=== PATIENT | female | born 1965 | race Caucasian/White ===

== ENCOUNTER → 2018-06-25 15:00 | Outpatient (CLI) | payer OTHER, SELFPAY | DX: Z23 Encounter for immunization (principal) | CPT/HCPCS: 90471; 90686 ==

== ENCOUNTER → 2018-08-19 14:51 | Outpatient (CLI) | payer OTHER, SELFPAY ==
--- NOTE | 2018-08-19 | DI.MG.S_ITS ---
BILATERAL DIGITAL SCREENING MAMMOGRAM 3D/2D WITH CAD: 08/19/2018 CLINICAL: Routine screening. Comparison is made to exams dated: 07/30/2017 mammogram - [facility], 04/13/2014 mammogram, and 03/07/2014 mammogram - [facility]. The tissue of both breasts is extremely dense, which lowers the sensitivity of mammography. Current study was also evaluated with a Computer Aided Detection (CAD) system. There is a benign biopsy clip in both breasts. No significant masses, calcifications, or other findings are seen in either breast. There has been no significant interval change. IMPRESSION: NEGATIVE There is no mammographic evidence of malignancy. A 1 year screening mammogram is recommended. This exam was interpreted at Station ID: [id number]. NOTE: For mammograms, a report in lay terms will be sent to the patient. Approximately 15% of breast malignancies will not be visualized mammographically. In the management of a palpable breast mass, a negative mammogram must not discourage biopsy of a clinically suspicious lesion. Electronically Signed By: Nereyda florentino/christiano:08/19/2018 16:04:47 letter sent: Normal Exam ACR BI-RADS Category 1: Negative 3341F
== END ==
PROVIDERS: Visit Provider Physician Assistant
DX: Z12.31 Encounter for screening mammogram for malignant neoplasm of breast (principal)
CPT/HCPCS: 77063; 77067

== ENCOUNTER 2018-10-24 12:56 | Emergency (ER) | payer OTHER, SELFPAY ==
[2018-10-24] VITALS (15 sets, daily range): BP systolic 118–150; BP diastolic 74–92; PULSE 64–113; RESP 12–22; TEMP 36.6; O2SAT 98–100
--- NOTE | 2018-10-24 13:19 | DI.RAD.S_ITS ---
PROCEDURE: XR WRIST RT MIN 3V INDICATIONS: fall/ injury/pain/deformed TECHNIQUE: 4 views of the wrist were acquired. COMPARISON: None. FINDINGS: Bones: There is a comminuted, mildly impacted fracture of the distal right radius with foreshortening and dorsal angulation of the distal fracture fragment. There is approximately 1.1 cm of override. Remainder of the visualized osseous structures appear intact. Scaphoid view: Not requested Soft tissues: No suspicious soft tissue calcifications. IMPRESSION: Comminuted, mildly impacted distal right radial fracture. Dictated by: Virgilio Zelaya M.D. on 10/24/2018 at 13:38 Approved by: Virgilio Zelaya M.D. on 10/24/2018 at 13:41
--- NOTE | 2018-10-24 13:25 | ED_ITS ---
HPI - Extremity Injury (Upper) General Chief Complaint: Extremity Injury, Upper Stated Complaint: RT WRIST BROKEN Time Seen by Provider: 10/24/18 13:05 Source: patient Mode of arrival: ambulatory Limitations: no limitations History of Present Illness HPI narrative: Otherwise healthy 53-year-old female not on anticoagulation here for evaluation of right upper extremity injury. Patient was hiking when she slipped and fell on an outstretched hand. Has an obvious deformity to her right wrist. She has no other injuries from the event. She did walk out of the trail. No interventions prior to arrival. Related Data Previous Rx's Medication Instructions Recorded hydrocodone-acetaminophen [[place]] 1 tab PO Q4-6H PRN #25 tab 10/24/18 ondansetron 4 mg PO Q6-8H PRN #10 tab 10/24/18 Allergies Allergy/AdvReac Type Severity Reaction Status Date / Time No Known Drug Allergies Allergy Verified 10/24/18 15:25 Review of Systems Constitutional Denies frequent falls and Denies headache(s) ENT Ears, Nose, Mouth, and Throat: Denies vertigo, Denies dizziness and Denies headache(s) Cardiovascular Denies chest pain and Denies dyspnea Respiratory Denies dyspnea Gastrointestinal Gastrointestinal: Denies abdominal pain, Denies nausea and Denies vomiting Genitourinary Denies dysuria Musculoskeletal Comments: Right wrist pain with deformity Integumentary/Breasts Denies lesions and Denies rash Neurologic Denies vertigo, Denies dizziness, Denies frequent falls and Denies headache(s) Hematologic/Lymphatic Comments: Not on anticoagulation PFSH Medical History Healthy adult (Acute) Surgical History No pertinent past surgical history (Acute) Social History lives independently: Yes Exam Initial Vital Signs Initial Vital Signs: Vital Signs Temperature 97.8 F 10/24/18 13:22 Pulse Rate 77 10/24/18 13:22 Respiratory Rate 12 10/24/18 13:22 Blood Pressure 143/90 H 10/24/18 13:22 Pulse Oximetry 98 10/24/18 13:22 Const General: cooperative, healthy appearing, comfortable, well developed, well groomed and No acute distress Orientation: alert, awake and oriented x3 HENMT Head: normal to inspection and normocephalic Resp Effort & Inspection: normal respiratory effort Auscultation: clear to auscultation bilaterally Cardio Palpation: normal PMI Rate: regular rate Heart Sounds: no murmurs Pulses: radial pulses present on the right GI Inspection: non-distended Palpation: soft Skin Lesions: no lesions Rashes: no rashes Neuro General: alert, awake and oriented x3 Other: Sensation intact to light touch right upper extremity Extrem Other: Right shoulder unremarkable. Right elbow unremarkable. Obvious deformity of the right wrist. Right hand right fingers unremarkable. Psych Appearance: grossly normal and well kempt Procedures Orthopedic Fracture Reduction Fracture #1: Time Out Performed: Yes Side: right Fracture Reduction Location: radius Analgesia: procedural sedation Technique: direct manipulation Post Reduction X-rays Demonstrate: acceptable reduction Post-reduction neuro exam: no change Post-reduction vascular exam: no change Splint Applied: Yes Patient Tolerated Procedure: Well and No complications Orthopedic Splinting/Casting Injury #1: Side: right Upper Extremity Injury Location: wrist Upper Extremity Immobilizer: sugar tong splint Procedural Sedation Patient Age: Patient is 5yrs or older Indication: fracture/dislocation reduction ASA Class: I Mallampati Airway Classification: Class I Preparation: gambling monitor applied, pulse oximeter, capnometry used and supplemental O2 applied Ketamine: IV Ketamine dose (mg): 100 ED Sedation Level: Moderate (Concious) Patient Tolerated Procedure: Well and No complications Complications: none Course Orders Ordered: ED Orders 10/24/18 13:19 XR wrist RT min 3V Stat 10/24/18 13:51 XR wrist RT 2V Stat Discontinued Medications Sodium Chloride (Normal Saline 0.9%) 1,000 mls @ 1,000 mls/hr IV BOLUS ONE Stop: 10/24/18 14:50 Last Admin: 10/24/18 15:27 Dose: Ketamine HCl (Ketalar) 100 mg IV NOW ONE Stop: 10/24/18 13:54 Last Admin: 10/24/18 14:26 Dose: 100 mg Morphine Sulfate (Morphine) 4 mg IV NOW ONE Stop: 10/24/18 13:52 Last Admin: 10/24/18 15:27 Dose: Vital Signs - 8 hr 10/24/18 13:22 10/24/18 14:00 10/24/18 14:07 Temperature 97.8 F Pulse Rate 77 67 64 Respiratory Rate 12 15 16 Blood Pressure 143/90 H Blood Pressure [Left Arm] 120/79 120/79 Pulse Oximetry 98 99 100 10/24/18 14:15 10/24/18 14:29 10/24/18 14:41 Temperature Pulse Rate 74 113 H 91 H Respiratory Rate 13 22 18 Blood Pressure Blood Pressure [Left Arm] 131/74 150/92 H 142/74 H Pulse Oximetry 100 100 100 10/24/18 14:45 10/24/18 14:51 10/24/18 14:52 Temperature Pulse Rate 82 65 75 Respiratory Rate 17 16 15 Blood Pressure Blood Pressure [Left Arm] 137/77 130/76 Pulse Oximetry 98 98 10/24/18 14:56 10/24/18 15:01 10/24/18 15:18 Temperature Pulse Rate 72 72 68 Respiratory Rate 16 16 13 Blood Pressure Blood Pressure [Left Arm] 130/79 130/81 120/79 Pulse Oximetry 98 99 99 10/24/18 15:30 10/24/18 15:45 10/24/18 16:00 Temperature Pulse Rate 64 66 66 Respiratory Rate 15 13 13 Blood Pressure Blood Pressure [Left Arm] 118/80 139/84 120/77 Pulse Oximetry 100 100 100 MDM - Extremity Injury (Upper) Lab Data Point of Care Testing Test Results Negative Imaging Data X-ray wrist: Radiologist's impression: PROCEDURE: XR WRIST RT MIN 3V INDICATIONS: fall/ injury/pain/deformed TECHNIQUE: 4 views of the wrist were acquired. COMPARISON: None. FINDINGS: Bones: There is a comminuted, mildly impacted fracture of the distal right radius with foreshortening and dorsal angulation of the distal fracture fragment. There is approximately 1.1 cm of override. Remainder of the visualized osseous structures appear intact. Scaphoid view: Not requested Soft tissues: No suspicious soft tissue calcifications. IMPRESSION: Comminuted, mildly impacted distal right radial fracture. Dictated by: Virgilio Zelaya M.D. on 10/24/2018 at 13:38 Approved by: Virgilio Zelaya M.D. on 10/24/2018 at 13:41 Post reduction x-ray wrist: Radiologist's impression: [address] [address] XRay Report Signed Patient: Tiffanie Shah JMR#: [id number] : 1965Acct:[id number] Age/Sex: 53 / FDate of Service: 10/24/18 Loc: ED Accession Number: [id number] Procedure: XR wrist RT 2V Ordering Provider: Julio Barrera D.O. PROCEDURE: XR WRIST RT 2V INDICATIONS: post reduction TECHNIQUE: 3 views of the wrist were acquired. COMPARISON: Earlier same date. FINDINGS: Bones: Status post interval closed reduction of a known comminuted distal right radial fracture. Post reduction alignment is improved with mild residual overlapping of the distal fracture fragments and minimal dorsal angulation. Overlying cast/splint material obscures fine underlying osseous details. No suspicious bony lesions. Scaphoid view: Not requested Soft tissues: No suspicious soft tissue calcifications. IMPRESSION: Status post interval closed reduction of comminuted right distal radial fracture in improved alignment. Dictated by: Virgilio Zelaya M.D. on 10/24/2018 at 15:46 Approved by: Virgilio Zelaya M.D. on 10/24/2018 at 15:47 [facility] Narrative Medical decision making narrative: Patient with mechanical fall and right distal radius fracture. Patient was sedated with ketamine in reduced fracture to acceptable reduction with splint placement. Patient tolerated well. Was neurovascularly intact. Was placed in a splint. Was given a sling. Will send home with pain medication and nausea medication. Was given care instructions. He is given return precautions. No other injuries from the event. Was given follow-up with Orthopedics. Patient expressed understanding and agreement with plan. Discharge Plan Departure Patient Disposition: Home Clinical Impression: Distal radius fracture, right Discharge Date/Time: 10/24/18 16:40 Interventions: ED Discharge Assessment Last Done: 10/24/18 16:40 Instructions: How to Take Care of Your Splint, DI for Distal Radius Fracture Activity Restrictions/Additional Instructions: The splint needs to stay on a needs to stay clean and stay dry. Take the pain medication the nausea medication as needed. On Friday contact the [facility] group at [phone]. I would also recommend you contact your primary care doctor. Return to the emergency department for any new or worsening symptoms Prescriptions: New ondansetron 4 mg tablet,disintegrating 4 mg PO Q6-8H PRN (Reason: nausea and vomiting) Qty: 10 RF: 0 hydrocodone-acetaminophen [[place]] 5-325 mg tablet 1 tab PO Q4-6H PRN (Reason: pain) Qty: 25 RF: 0
--- NOTE | 2018-10-24 13:51 | DI.RAD.S_ITS ---
PROCEDURE: XR WRIST RT 2V INDICATIONS: post reduction TECHNIQUE: 3 views of the wrist were acquired. COMPARISON: Earlier same date. FINDINGS: Bones: Status post interval closed reduction of a known comminuted distal right radial fracture. Post reduction alignment is improved with mild residual overlapping of the distal fracture fragments and minimal dorsal angulation. Overlying cast/splint material obscures fine underlying osseous details. No suspicious bony lesions. Scaphoid view: Not requested Soft tissues: No suspicious soft tissue calcifications. IMPRESSION: Status post interval closed reduction of comminuted right distal radial fracture in improved alignment. Dictated by: Virgilio Zelaya M.D. on 10/24/2018 at 15:46 Approved by: Virgilio Zelaya M.D. on 10/24/2018 at 15:47
[2018-10-24] MEDS: KETAMINE 500 MG/10 ML INJ 100 MG IV (14:26)
--- NOTE | 2018-10-24 14:27 | PC.NURSE ---
close reduction started, minimal chest rise, assist with bvm by rt.
--- NOTE | 2018-10-24 14:33 | PC.NURSE ---
pt with shallow respiration, continue with minimal assist ventilation. splint applied by dr quevedo, distal cms intact. post reduction xray
--- NOTE | 2018-10-24 14:47 | PC.NURSE ---
[id number] pt gave verbal consent for procedure, pt right handed, told mother to signed the consent.
--- NOTE | 2018-10-24 14:56 | PC.NURSE ---
family at bs.
== END 2018-10-24 16:40 | disposition home or self-care (01) ==
PROVIDERS: Emergency Provider Emergency Medicine; PCP Physician Assistant
DX: S52.501A Unspecified fracture of the lower end of right radius, initial encounter for closed fracture (principal); W01.0XXA Fall on same level from slipping, tripping and stumbling without subsequent striking against object, initial encounter; Y93.01 Activity, walking, marching and hiking
CPT/HCPCS: 25605; 73100; 73110; 94770; 99152; 99284; 99285; 99291

== ENCOUNTER → 2019-06-24 12:52 | Outpatient (CLI) | payer OTHER, SELFPAY | PROVIDERS: PCP Physician Assistant | DX: Z23 Encounter for immunization (principal) | CPT/HCPCS: 90471; 90686 ==

== ENCOUNTER → 2019-09-06 14:17 | Outpatient (CLI) | payer OTHER, SELFPAY ==
--- NOTE | 2019-09-06 | DI.MG.S_ITS ---
BILATERAL DIGITAL SCREENING MAMMOGRAM 3D/2D WITH CAD: 09/06/2019 CLINICAL: Routine screening. Comparison is made to exams dated: 08/19/2018 mammogram, 07/30/2017 mammogram - [facility], and 04/13/2014 mammogram - [facility]. The tissue of both breasts is extremely dense, which lowers the sensitivity of mammography. Current study was also evaluated with a Computer Aided Detection (CAD) system. There are benign calcifications in the right breast. There also is a biopsy clip in both breasts. No significant masses, calcifications, or other findings are seen in either breast. There has been no significant interval change. IMPRESSION: There is no mammographic evidence of malignancy. A 1 year screening mammogram is recommended. This exam was interpreted at Station ID: [id number]. NOTE: For mammograms, a report in lay terms will be sent to the patient. Approximately 15% of breast malignancies will not be visualized mammographically. In the management of a palpable breast mass, a negative mammogram must not discourage biopsy of a clinically suspicious lesion. Electronically Signed By: Virgilio sargent/christiano:09/06/2019 19:41:13 letter sent: Normal Exam ACR BI-RADS Category 2: Benign Finding(s) 3342F
== END ==
PROVIDERS: PCP Physician Assistant; Visit Provider Physician Assistant
DX: Z12.31 Encounter for screening mammogram for malignant neoplasm of breast (principal)
CPT/HCPCS: 77063; 77067

== ENCOUNTER → 2019-09-28 15:09 | Outpatient (ROUT) | payer OTHER, SELFPAY | PROVIDERS: PCP Physician Assistant; Visit Provider Physician Assistant | DX: M12.10 Kaschin-Beck disease, unspecified site (principal) | CPT/HCPCS: 87077; 87086; 87186 ==

== ENCOUNTER 2019-10-12 07:31 | Emergency (ER) | payer OTHER, SELFPAY ==
[2019-10-12 07:31] VITALS: BP 108/77; PULSE 81; RESP 16; TEMP 36.1; O2SAT 98; BMI 18.8
--- NOTE | 2019-10-12 07:35 | DI.RAD.S_ITS ---
PROCEDURE: XR WRIST RT MIN 3V INDICATIONS: fell, now with right wrist pain TECHNIQUE: 4 views of the wrist were acquired. COMPARISON: [facility] CHAPINCITO Krueger, XR WRIST 3+ VIEWS RIGHT, 01/18/2019, 13:15. FINDINGS: Bones: There is an apparent new transverse fracture involving the distal right radial metaphysis with associated mild impaction that extends into the distal radial ulnar joint with widening of the distal radial ulnar joint. An old ulnar styloid process injury is evident. Moderate degenerative changes are noted involving the basal joint of the thumb. Soft tissues: No suspicious soft tissue calcifications. Soft tissue swelling about the wrist is present. IMPRESSION: Mildly impacted distal radial metaphyseal fracture. Dictated by: Brandon Cleveland M.D. on 10/12/2019 at 7:10 Approved by: Brandon Cleveland M.D. on 10/12/2019 at 7:12
--- NOTE | 2019-10-12 08:07 | ED.UPPEXIN ---
HPI - Extremity Injury (Upper) General Chief Complaint: Extremity Injury, Upper Stated Complaint: slipped this morning,injury right wrist Time Seen by Provider: 10/12/19 08:00 Source: patient Mode of arrival: Ambulatory Limitations: no limitations History of Present Illness HPI narrative: Patient is a 54-year-old female who presents with right wrist pain after trip and fall on the ice. She denies any numbness or tingling no other injuries. MD complaint: injury to: right and wrist Onset (ago): minute(s) Related Data Previous Rx's Medication Instructions Recorded hydrocodone-acetaminophen [[place]] 1 tab PO Q4-6H PRN #25 tab 10/24/18 ondansetron 4 mg PO Q6-8H PRN #10 tab 10/24/18 Allergies Allergy/AdvReac Type Severity Reaction Status Date / Time No Known Drug Allergies Allergy Verified 10/12/19 07:42 Review of Systems Review of Systems Narrative: GENERAL: Denies chills,fever HEENT: Denies throat pain RESPIRATORY: Denies dyspnea, cough, wheezing CARDIOVASCULAR: Denies chest pain, palpitations GASTROINTESTINAL: Denies nausea, vomiting MUSCULOSKELETAL: See HPI SKIN: No rash, no laceration, no pruritus NEUROLOGIC: Denies weakness, dizziness, headache, numbness 8 point review of systems is negative except for those stated above and HPI Patient History Medical History Healthy adult (Acute) Surgical History No pertinent past surgical history (Acute) Social History lives independently: Yes Smoking Status: Never smoker Smoking Status: Never smoker Substance Use Type: does not use Exam Initial Vital Signs Initial Vital Signs: Vital Signs Temperature 96.9 F L 10/12/19 07:31 Pulse Rate 81 10/12/19 07:31 Respiratory Rate 16 10/12/19 07:31 Blood Pressure 108/77 10/12/19 07:31 Pulse Oximetry 98 10/12/19 07:31 GENERAL: Well-appearing, well-nourished and in no acute distress. CARDIOVASCULAR: peripheral pulses in tact, cap refill <2 sec RESPIRATORY: No respiratory distress, speaks in full sentences without difficulty EXTREMITIES: Normal range of motion, no clubbing or edema. Neurovascularly intact Right wrist good distal radial pulse obvious deformity moving all fingers minimal swelling NEUROLOGICAL: Cranial nerves II through XII grossly intact. Normal gait and speech. SKIN: Warm, dry, no petechiae, no rashes or lesions. Procedures Orthopedic Splinting/Casting Injury #1: Side: left Upper Extremity Injury Location: wrist Upper Extremity Immobilizer: sugar tong splint Post splinting neuro exam: intact Post splinting vascular exam: intact Placed by: Nursing Course Orders Ordered: ED Orders 10/12/19 07:35 XR wrist RT min 3V Stat Vital Signs Vital signs: Vital Signs - 8 hr 10/12/19 07:31 Temperature 96.9 F L Pulse Rate 81 Respiratory Rate 16 Blood Pressure 108/77 Pulse Oximetry 98 MDM - Extremity Injury (Upper) Imaging Data Extremity x-ray #1: Radiologist's Impression: PROCEDURE: XR WRIST RT MIN 3V INDICATIONS: fell, now with right wrist pain TECHNIQUE: 4 views of the wrist were acquired. COMPARISON: [facility] CHAPINCITO Morales, XR WRIST 3+ VIEWS RIGHT, 01/18/2019, 13:15. FINDINGS: Bones: There is an apparent new transverse fracture involving the distal right radial metaphysis with associated mild impaction that extends into the distal radial ulnar joint with widening of the distal radial ulnar joint. An old ulnar styloid process injury is evident. Moderate degenerative changes are noted involving the basal joint of the thumb. Soft tissues: No suspicious soft tissue calcifications. Soft tissue swelling about the wrist is present. IMPRESSION: Mildly impacted distal radial metaphyseal fracture. Dictated by: Brandon Cleveland M.D. on 10/12/2019 at 7:10 MDM Narrative Medical decision making narrative: This is patient's 2nd fracture no same place, she has a sling at home. Recommended following up with orthopedics. Discharge Plan Departure Patient Disposition: Home Clinical Impression: Fracture of wrist Qualifiers: Encounter type: initial encounter Fracture type: closed Laterality: right Qualified Code(s): S62.101A - Fracture of unspecified carpal bone, right wrist, initial encounter for closed fracture Discharge Date/Time: 10/12/19 09:03 Instructions: DI for Distal Radius Fracture Activity Restrictions/Additional Instructions: *You have been diagnosed with right wrist fracture *What to do: Keep arm in splint at all times. Use sling as needed Need follow-up with orthopedic *Continue to take medications as directed Tylenol 650 mg every 4-6 hours if needed for pain Or 1000 mg every 6 hours to not exceed more than 4000 mg in 24 hours *Follow up with your primary care provider in 2-3 days Call orthopedics today to follow-up the next 1-2 weeks *Return to ER if you should have increasing pain numbness tingling inability to move fingers or any new, worsening or concerning symptoms Prescriptions: No Action ondansetron 4 mg tablet,disintegrating 4 mg PO Q6-8H PRN (Reason: nausea and vomiting) Qty: 10 RF: 0 hydrocodone-acetaminophen [[place]] 5-325 mg tablet 1 tab PO Q4-6H PRN (Reason: pain) Qty: 25 RF: 0 Referrals: [facility] [Provider Group] Sophie Bro PA-C [Primary Care Provider] -
== END 2019-10-12 09:03 | disposition home or self-care (01) ==
PROVIDERS: Emergency Provider Emergency Medicine; PCP Physician Assistant
DX: S62.101A Fracture of unspecified carpal bone, right wrist, initial encounter for closed fracture (principal); W00.0XXA Fall on same level due to ice and snow, initial encounter
CPT/HCPCS: 29125; 73110; 99281; 99283

== ENCOUNTER → 2020-09-14 16:27 | Outpatient (CLI) | payer OTHER, SELFPAY ==
--- NOTE | 2020-09-14 16:28 | DI.MG.S_ITS ---
BILATERAL DIGITAL SCREENING MAMMOGRAM 3D/2D WITH CAD: 09/14/2020 CLINICAL: Routine screening. Comparison is made to exams dated: 09/06/2019 mammogram, 08/19/2018 mammogram, and 07/30/2017 mammogram - [facility]. The tissue of both breasts is extremely dense, which lowers the sensitivity of mammography. Current study was also evaluated with a Computer Aided Detection (CAD) system. There are benign calcifications in the right breast. There also is a biopsy clip in both breasts. No significant masses, calcifications, or other findings are seen in either breast. There has been no significant interval change. IMPRESSION: BENIGN There is no mammographic evidence of malignancy. A 1 year screening mammogram is recommended. This exam was interpreted at Station ID: [id number]. NOTE: For mammograms, a report in lay terms will be sent to the patient. Approximately 15% of breast malignancies will not be visualized mammographically. In the management of a palpable breast mass, a negative mammogram must not discourage biopsy of a clinically suspicious lesion. Electronically Signed By: Nereyda florentino/christiano:09/14/2020 16:55:10 letter sent: Normal Exam ACR BI-RADS Category 2: Benign Finding(s) 3342F
== END ==
PROVIDERS: PCP Physician Assistant; Referring Provider Physician Assistant; Visit Provider Physician Assistant
DX: Z12.31 Encounter for screening mammogram for malignant neoplasm of breast (principal)
CPT/HCPCS: 77063; 77067

== ENCOUNTER → 2021-04-30 14:56 | Outpatient (CLI) | payer OTHER, SELFPAY | PROVIDERS: PCP Physician Assistant; Referring Provider Pediatrics; Visit Provider Physician Assistant | DX: M85.832 Other specified disorders of bone density and structure, left forearm (principal); Z78.0 Asymptomatic menopausal state; Z87.81 Personal history of (healed) traumatic fracture | CPT/HCPCS: 77080; 77081 ==

== ENCOUNTER → 2021-09-17 16:34 | Outpatient (CLI) | payer OTHER, SELFPAY ==
--- NOTE | 2021-09-17 16:36 | DI.MG.S_ITS ---
BILATERAL DIGITAL SCREENING MAMMOGRAM 3D/2D WITH CAD: 09/17/2021 CLINICAL: Routine screening. Comparison is made to exams dated: 09/14/2020 mammogram, 09/06/2019 mammogram, and 08/19/2018 mammogram - [facility]. The tissue of both breasts is extremely dense, which lowers the sensitivity of mammography. Current study was also evaluated with a Computer Aided Detection (CAD) system. There are benign calcifications in the right breast. There also is a biopsy clip in both breasts. No significant masses, calcifications, or other findings are seen in either breast. There has been no significant interval change. IMPRESSION: BENIGN There is no mammographic evidence of malignancy. A 1 year screening mammogram is recommended. This exam was interpreted at Station ID: [id number]. NOTE: For mammograms, a report in lay terms will be sent to the patient. Approximately 15% of breast malignancies will not be visualized mammographically. In the management of a palpable breast mass, a negative mammogram must not discourage biopsy of a clinically suspicious lesion. Electronically Signed By: Js Lau M.D., jr/christiano:09/17/2021 16:54:36 letter sent: Normal Exam ACR BI-RADS Category 2: Benign Finding(s) 3342F
== END ==
PROVIDERS: PCP Physician Assistant; Referring Provider Physician Assistant; Visit Provider Physician Assistant
DX: Z12.31 Encounter for screening mammogram for malignant neoplasm of breast (principal)
CPT/HCPCS: 77063; 77067

== ENCOUNTER → 2022-10-02 11:18 | Outpatient (CLI) | payer OTHER, SELFPAY ==
--- NOTE | 2022-10-02 | DI.MG.S_ITS ---
BILATERAL DIGITAL SCREENING MAMMOGRAM 3D/2D WITH CAD: 10/02/2022 CLINICAL: Routine screening. Comparison is made to exams dated: 09/17/2021 mammogram, 09/14/2020 mammogram, and 09/06/2019 mammogram - [facility]. Both breasts are heterogeneously dense, which may obscure small masses (category c / 51-75% glandular tissue). Current study was also evaluated with a Computer Aided Detection (CAD) system. There are benign calcifications in the right breast. There also is a biopsy clip in both breasts. No significant masses, calcifications, or other findings are seen in either breast. There has been no significant interval change. IMPRESSION: BENIGN There is no mammographic evidence of malignancy. A 1 year screening mammogram is recommended. Based on the Tyrer Cuzick model (a risk assessment model) the patient's lifetime risk is 12.8% and her 10 year risk is 5.0%. According to the ACR, ACS, and NCCN guidelines, an annual breast MRI exam along with mammogram is recommended if the patient's lifetime risk is 20% or greater. This exam was interpreted at Station ID: [id number]. NOTE: For mammograms, a report in lay terms will be sent to the patient. Approximately 15% of breast malignancies will not be visualized mammographically. In the management of a palpable breast mass, a negative mammogram must not discourage biopsy of a clinically suspicious lesion. Electronically Signed By: Willy selby/christiano:10/02/2022 11:40:59 letter sent: Normal Exam ACR BI-RADS Category 2: Benign Finding(s) 3342F
== END ==
PROVIDERS: PCP Physician Assistant; Referring Provider Physician Assistant; Visit Provider Physician Assistant
DX: Z12.31 Encounter for screening mammogram for malignant neoplasm of breast (principal)
CPT/HCPCS: 77063; 77067

== ENCOUNTER 2023-05-16 12:36 | Day surgery (SDC) | payer OTHER, SELFPAY ==
--- NOTE | 2023-05-16 | PATH_ITS ---
[facility] Accession Number: [id number] No. of containers..02 Tissue . 01 Material submitted: . PART A: colon - TRANSVERSE COLON POLYP PART B: colon - DESCENDING COLON POLYP . 01 Diagnosis: A. Transverse Colon Polyp, Biopsy: Colonic mucosa with benign lyhmphoid aggregate. No dysplasia or neoplasia identified. . B. Descending Colon Polyp, Biopsy: Tubular adenoma. MRV 05/29/2023 1508 Local . 01 Electronically signed: . Jeannine Pace MD, Pathologist NPI- [id number] . 01 Gross description: . Part A: TRANSVERSE COLON POLYP: Received in formalin are 2 fragment(s) of grey, soft tissue measuring 0.1 x 0.1 x 0.1 cm to 0.3 x 0.2 x 0.2 cm submitted entirely in 1 cassette(s) Part B: DESCENDING COLON POLYP: Received in formalin are 2 fragment(s) of grey, soft tissue measuring 0.2 x 0.2 x 0.1 cm to 0.3 x 0.3 x 0.2 cm submitted entirely in 1 cassette(s) /TICO 05/21/2023 0040 Local . 01 Pathologist provided ICD-10: K63.89, D12.4 . 01 CPT . 320018, 840365 Specimen Comment: A courtesy copy of this report has been sent to [facility] Performed at: [facility] [address] [place] [address], [place], [place] [id number] MD Liu Suárez MD Phone: [phone]
[2023-05-16 14:05] VITALS: BP 122/72; PULSE 73; RESP 16; TEMP 35.9; O2SAT 98; BMI 20.1
[2023-05-16] MEDS: LACTATED RINGERS 1,000 ML 84 ML IV (14:18)
--- NOTE | 2023-05-16 15:06 | PM.HP.1 ---
History of Present Illness History of Present Illness Date Patient Seen: 05/16/23 Time Patient Seen: 15:13 [place] [facility] [place]ative: 57-year-old female presents today for her 2nd screening colonoscopy. Her last colonoscope was about 10 years ago in [place] there were no polyps. She has no family history of colon cancer in no concerning symptoms. She otherwise has no questions or concerns and would like to proceed today. [facility] Medical History (Updated 05/16/23 @ 15:15 by Slime Aponte MD) Healthy adult Surgical History (Updated 05/16/23 @ 14:05 by Amelie Park RN) History of hip replacement, total No pertinent past surgical history Social History household members: significant other lives independently: Yes Smoking Status: Never smoker alcohol intake: never Meds Home Medications and Allergies Home Medications Medication Instructions Recorded Confirmed Type spironolactone 50 mg tablet 50 mg PO DAILY 05/16/23 05/16/23 History sulfacetamide sodium (acne) 10 % topical QAM 05/16/23 History lotion (suspension) Allergies Allergy/AdvReac Type Severity Reaction Status Date / Time No Known Drug Allergies Allergy Verified 05/16/23 13:29 Exam Vital Signs (past 8 hours): - 05/16/23 14:05 Temperature 96.7 F L Pulse Rate 73 Respiratory Rate 16 Blood Pressure 122/72 Pulse Oximetry 98 Oxygen Delivery Method Room Air Oxygen Delivery Method Room Air Const General: cooperative, healthy appearing and comfortable Nutritional Appearance: well nourished and thin Orientation: alert, awake and oriented x3 HENMT Head: normal to inspection Eyes General: appearance normal, both eyes and all related structures Resp Effort & Inspection: normal respiratory effort and able to speak in complete sentences Cardio Pulses: radial pulses present GI Palpation: soft and No tender Assessment & Plan Assessment and plan (1) Colon cancer screening: Status: Acute Assessment & Plan narrative: Presents today for screening colonoscopy I discussed the risks benefits and alternatives including but not limited to perforation of the colon and an incomplete exam she fully understands these risks and would like to proceed.
[2023-05-16 16:08] VITALS: BP 88/53; PULSE 68; RESP 20; TEMP 36.4; O2SAT 100
[2023-05-16 16:13] VITALS: BP 94/49; PULSE 68; RESP 20; O2SAT 100
[2023-05-16 16:18] VITALS: BP 92/55; PULSE 72; RESP 20; O2SAT 100
--- NOTE | 2023-05-16 16:19 | PM.OP.COLON ---
Operative Date/Time/Diagnoses Date of procedure: 05/16/23 Time of procedure: 16:19 Pre-op diagnosis: Colon cancer screening. No family history Post-op diagnosis: same Procedure & Clinicians Study performed: Colonoscopy and biopsy Indications: Colon cancer screening. No family history. No history of polyps Surgeon: Slime Aponte Procedure Notes Procedure in detail: Patient was taken to the endoscopy suite and placed in a left lateral decubitus position. A time-out was performed. With the help of anesthesiologist conscious sedation was induced and monitored throughout the case. A digital rectal exam was performed and there were no masses or strictures. The colonoscope was introduced into the anal canal and advanced through to the cecum. A photograph of the appendiceal orifice was obtained. The bowel prep was good Ingraham bowel prep score of 2. The scope was then withdrawn for a total of 15 minutes including biopsy and a small sessile type of polyp was seen in the transverse colon and removed with biopsy forceps. Another similarly small and sessile appearing polyp was seen and removed with forceps in the descending colon. The scope was then withdrawn slowly through the anal canal and internal hemorrhoidal piles appeared unremarkable. Findings: polyp(s) Specimen(s): other (1. Transverse colon polyp 2. Descending colon polyp) Complications: none Post-procedure Plan for aftercare: Likely will recommend follow up in 7-10 years depending on the pathology of these polyps. I do recommend fiber supplement for anyone with polyps. Final recommendations for follow-up depend on the pathology report
[2023-05-16 16:30] VITALS: BP 100/66; PULSE 65; RESP 14; TEMP 36.2; O2SAT 100
== END 2023-05-16 16:40 | disposition home or self-care (01) ==
PROVIDERS: PCP Physician Assistant; Referring Provider Surgery; Visit Provider Surgery
PROC: 0DJD8ZZ Inspection of Lower Intestinal Tract, Via Natural or Artificial Opening Endoscopic (ICD-10-PCS; CPT 45378; principal; 2023-05-16 13:30)
DX: Z12.11 Encounter for screening for malignant neoplasm of colon (principal); D12.4 Benign neoplasm of descending colon
CPT/HCPCS: 45380; J2704

== ENCOUNTER 2023-09-29 16:46 | Emergency (ER) | payer OTHER, SELFPAY ==
[2023-09-29 17:02] VITALS: BP 135/60; PULSE 74; RESP 16; TEMP 37.2; O2SAT 99; BMI 19.5
--- NOTE | 2023-09-29 17:07 | DI.US.S_ITS ---
PROCEDURE: US PERIPH VENOUS LOW EXTREM RT INDICATIONS: CALF PAIN TECHNIQUE: Real-time imaging, as well as color and pulse Doppler interrogation, were performed of the lower extremity deep veins from the inguinal ligament to the popliteal fossa, with documentation of the visualized calf veins. COMPARISON: None. FINDINGS: There is a mild amount of thrombus seen within the greater saphenous vein, which calms 0.6 cm from the common femoral junction. The thrombus can be seen within the deep venous system. IMPRESSION: There is a short segment greater saphenous vein thrombosis seen, which is considered to be part of the superficial system. Dictated by: Yusuf Issa M.D. on 09/29/2023 at 17:17 Approved by: Yusuf Issa M.D. on 09/29/2023 at 17:19
--- NOTE | 2023-09-29 20:48 | ED.EXTPRO ---
HPI - Extremity Problem General Chief complaint: Extremity Problem,Nontraumatic Stated complaint: rt knee pain/swelling Time Seen by Provider: 09/29/23 20:48 History of Present Illness HPI Narrative: Otherwise healthy 58-year-old woman currently on no medication who presents with Right leg pain for a couple of days increasing over the last 24 hours. She has had some knee issues has had an MRI. She notes that over the last couple of days when she is completed a hike that she has a bit more swelling above her socks on the right side compared to the left side. There has been no fevers, tachycardia, shortness of breath, palpitations, chest pain. Related Data Home Medications Medication Instructions Recorded Confirmed spironolactone 50 mg tablet 50 mg PO DAILY 05/16/23 05/16/23 sulfacetamide sodium (acne) 10 % topical QAM 05/16/23 lotion (suspension) Previous Rx's Medication Instructions Recorded psyllium husk (with sugar) 3.4 1 tbsp PO BID #822 grams 05/16/23 gram/7 gram oral powder (Fiber (psyllium husk-sugar)) Allergies Allergy/AdvReac Type Severity Reaction Status Date / Time No Known Drug Allergies Allergy Verified 05/16/23 13:29 Review of Systems Review of Systems Narrative: Pertinent positive and negative findings as per HPI Patient History Medical History Healthy adult Surgical History History of hip replacement, total No pertinent past surgical history Social History household members: significant other lives independently: Yes Smoking Status: Never smoker alcohol intake: never Smoking Status: Never smoker Substance Use Type: does not use Exam Initial Vital Signs Initial Vital Signs: Vital Signs Temperature 98.9 F 09/29/23 17:02 Pulse Rate 74 09/29/23 17:02 Respiratory Rate 16 09/29/23 17:02 Blood Pressure 135/60 09/29/23 17:02 Pulse Oximetry 99 09/29/23 17:02 Oxygen Delivery Method Room Air 09/29/23 17:02 General: Alert appropriate in no acute distress Respiratory: Able to speak in full sentences, no obvious respiratory distress Skin: No obvious rashes, warm and dry Neurologic: Grossly intact no obvious asymmetries or abnormalities Psych: appropriate insight and affect, cooperative Extremity: No significant thigh tenderness. No redness, minimal edema to the right calf mostly appreciated with a slight amount of swelling over her sock. She does not have calf tenderness. There is no warmth or redness appreciated Course Orders Ordered: ED Orders 09/29/23 17:07 [facility] venous low extrem rt Stat Vital Signs Vital signs: Vital Signs - 8 hr 09/29/23 17:02 Temperature 98.9 F Pulse Rate 74 Respiratory Rate 16 Blood Pressure 135/60 Pulse Oximetry 99 Oxygen Delivery Method Room Air MDM - Extremity (Nontraumatic) MDM Narrative Medical decision making narrative: CC: Right leg kwame Data collected from: patient Differential considered: Musculoskeletal trauma, DVT, infection Exam documented above, pertinent findings include: Minimal abnormality to lower extremities. No redness, significant swelling or obvious tenderness to palpation Imaging studies independently reviewed: DVT study shows a short segment of the greater saphenous vein with thrombosis. This is a superficial vessel she does not have a DVT Discussion: Superficial thrombosis right greater saphenous vein. Discussed symptomatic treatment, did recommend an aspirin daily she does not meet criteria for needing any additional anticoagulation. We did review signs and symptoms of DVTs and discussed the anatomy of the vessels so she understands where this small amount of clot is. Questions are answered and she is safe for discharge Discharge Plan Departure Patient Disposition: Home Clinical Impression: Superficial thrombophlebitis Qualifiers: Superficial thrombophlebitis-Involved body area: lower extremity Laterality: right Qualified Code(s): I80.01 - Phlebitis and thrombophlebitis of superficial vessels of right lower extremity Instructions: DI for Superficial Thrombophlebitis Activity Restrictions/Additional Instructions: Thank you for coming in today Fortunately this is a superficial thrombophlebitis that involves a short segment of the greater saphenous vein. I would recommend 325 mg of aspirin daily for the next month. If you noticing that your leg and calf are swollen you may find that compression socks (try the running compression sock variety for comfort) may be helpful. Heat and massage to the inner thigh may be helpful. This is not a DVT. This is in the superficial portion of the veins of your leg. You are not at risk for blood clots to your lungs from this clot. The ultrasound suggests that the clot is fairly small and your body will likely either reabsorbed or quickly find ways to work around it. If you find that you are getting worse or develop any new symptoms, please feel free to return to the emergency department for further evaluation. Prescriptions: No Action sulfacetamide sodium (acne) 10 % suspension topical QAM spironolactone 50 mg tablet 50 mg PO DAILY Fiber (psyllium husk-sugar) 3.4 gram/7 gram powder 1 tbsp PO BID Qty: 822 0RF Rx Instructions: Try taking 1 tbsp once or twice daily. If you do not wish to lose weight you can take them in between meals. ( Usually I recommend before meals but this tends to decrease the amount that you will eat.) Referrals: Anastasiia Rashid PA-C [Primary Care Provider] - Stand Alone Forms: Patient Portal/API
[2023-09-29 21:20] VITALS: BP 123/66; PULSE 66; RESP 16; TEMP 36.8; O2SAT 97
== END 2023-09-29 21:20 | disposition home or self-care (01) ==
PROVIDERS: Emergency Provider Emergency Medicine; PCP Physician Assistant
DX: I80.01 Phlebitis and thrombophlebitis of superficial vessels of right lower extremity (principal)
CPT/HCPCS: 93971; 99282; 99283

== ENCOUNTER → 2023-10-07 15:16 | Outpatient (CLI) | payer OTHER, SELFPAY ==
--- NOTE | 2023-10-07 | DI.MG.S_ITS ---
BILATERAL DIGITAL SCREENING MAMMOGRAM 3D/2D WITH CAD: 10/07/2023 CLINICAL: Routine screening. Comparison is made to exams dated: 10/02/2022 mammogram, 09/17/2021 mammogram, 09/14/2020 mammogram, 09/06/2019 mammogram, and 08/19/2018 mammogram - [facility]. Both breasts are heterogeneously dense, which may obscure small masses (category c / 51-75% glandular tissue). Current study was also evaluated with a Computer Aided Detection (CAD) system. There are benign calcifications in the right breast. There also is a biopsy clip in both breasts. No significant masses, calcifications, or other findings are seen in either breast. There has been no significant interval change. IMPRESSION: BENIGN There is no mammographic evidence of malignancy. A 1 year screening mammogram is recommended. Based on the Tyrer Cuzick model (a risk assessment model) the patient's lifetime risk is 12.5% and her 10 year risk is 5.1%. According to the ACR, ACS, and NCCN guidelines, an annual breast MRI exam along with mammogram is recommended if the patient's lifetime risk is 20% or greater. This exam was interpreted at Station ID: [id number]. NOTE: For mammograms, a report in lay terms will be sent to the patient. Approximately 15% of breast malignancies will not be visualized mammographically. In the management of a palpable breast mass, a negative mammogram must not discourage biopsy of a clinically suspicious lesion. Electronically Signed By: Alex batista/christiano:10/08/2023 11:01:47 letter sent: Normal Exam ACR BI-RADS Category 2: Benign Finding(s) 3342F
== END ==
LOC: MAMMO 15:16
PROVIDERS: PCP Physician Assistant; Referring Provider Physician Assistant; Visit Provider Physician Assistant
DX: Z12.31 Encounter for screening mammogram for malignant neoplasm of breast (principal); R92.333 Mammographic heterogeneous density, bilateral breasts
CPT/HCPCS: 77063; 77067

== ENCOUNTER → 2024-10-14 14:10 | Outpatient (CLI) | payer OTHER, SELFPAY ==
--- NOTE | 2024-10-14 14:11 | DI.MG.S_ITS ---
BILATERAL DIGITAL SCREENING MAMMOGRAM 3D/2D WITH CAD: 10/14/2024 CLINICAL: Routine screening. Comparison is made to exams dated: 10/07/2023 mammogram, 10/02/2022 mammogram, and 09/17/2021 mammogram - [facility]. The breasts are heterogeneously dense, which may obscure small masses (category c / 51-75% glandular tissue). Current study was also evaluated with a Computer Aided Detection (CAD) system. There are benign calcifications in the right breast. There also is a biopsy clip in both breasts. No significant masses, calcifications, or other findings are seen in either breast. There has been no significant interval change. IMPRESSION: BENIGN There is no mammographic evidence of malignancy. A 1 year screening mammogram is recommended. Based on the Tyrer Cuzick model (a risk assessment model) the patient's lifetime risk is 12.2% and her 10 year risk is 5.2%. According to the ACR, ACS, and NCCN guidelines, an annual breast MRI exam along with mammogram is recommended if the patient's lifetime risk is 20% or greater. This exam was interpreted at Station ID: [id number]. NOTE: For mammograms, a report in lay terms will be sent to the patient. Approximately 15% of breast malignancies will not be visualized mammographically. In the management of a palpable breast mass, a negative mammogram must not discourage biopsy of a clinically suspicious lesion. Electronically Signed By: Alex abtista/christiano:10/14/2024 18:20:36 letter sent: Normal Exam ACR BI-RADS Category 2: Benign
== END ==
LOC: MAMMO 14:10
PROVIDERS: PCP Physician Assistant; Referring Provider Physician Assistant; Visit Provider Physician Assistant
DX: Z12.31 Encounter for screening mammogram for malignant neoplasm of breast (principal); R92.333 Mammographic heterogeneous density, bilateral breasts
CPT/HCPCS: 77063; 77067